=== PATIENT | male | born 2000 | race Caucasian/White ===

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

== ENCOUNTER 2022-04-23 22:24 | Emergency (ER) | payer SELFPAY ==
[2022-04-23 23:04] VITALS: BP 106/61; PULSE 92; RESP 18; TEMP 37.1; O2SAT 100; BMI 21.4
--- NOTE | 2022-04-23 23:08 | ED_ITS ---
HPI - Wound/Laceration General: Chief Complaint: Wound/Laceration Stated Complaint: left foot cut Time Seen by Provider: 04/23/22 23:08 History of Present Illness: 22-year-old male comes in today for complaints of injury to the right ball of foot. Patient reports his shoes came off while he was swimming in the river. Patient kicked up off the bottom cutting his ball of his foot at the first metatarsal phalanx joint. Patient reports that his tetanus is not up-to-date. Review of Systems General: Reports: 10 or more systems reviewed and unremarkable except in HPI and below Musc: Reports: extremity pain Skin/Breast: Reports: new lesions Physical Exam Const: COMMON NORMALS: alert HENMT: COMMON NORMALS: atraumatic HEAD & SCALP: atraumatic Neck/C-Spine: COMMON NORMALS: full ROM Resp: COMMON NORMALS: normal respiratory effort Cardio: COMMON NORMALS: regular rate RATE: regular rate Extremity: RIGHT LOWER EXTREMITY: Yes foot & digits (4 cm laceration to the right ball of foot.) Right foot and digits: Yes inspection, Yes palpation and Yes ROM Neuro: SENSORIUM/ORIENTATION: Yes alert Skin: TRAUMA: laceration (Right foot) linear; Negative for no foreign bodies present Procedures Laceration Laceration 1: Site: lower extremity (Right foot) Side (If applicable): right Size (cm): 4 Description: linear Depth: simple, single layer Local Anesthetic: lidocaine 1% Amount of anesthesia used (mL): 5 Pre-repair: wound explored and irrigated extensively Skin layer closed with: nylon Size (cm): 4-0 Number of sutures: 4 Technique: horizontal mattress Course Vital Signs: Vital signs: Vital Signs Temperature 98.7 F 04/23/22 23:04 Pulse Rate 92 04/23/22 23:04 Respiratory Rate 18 04/23/22 23:04 Blood Pressure 106/61 04/23/22 23:04 Pulse Oximetry 100 04/23/22 23:04 [facility] - Wound/Laceration Medical Decision Making 22-year-old male patient comes in today for injury to the right foot. On exam patient has a 4 cm laceration to the ball of his right foot. No tendon injury is noted. No foreign body was noted. No sign of fracture was noted. Differential diagnosis includes laceration, foreign body, need for prophylaxis tetanus. Tetanus was updated. Patient was given a dose of Augmentin for prophylaxis antibiotic. Wound was closed with 4 mattress sutures with well approximation. Reviewed postprocedure care with patient and significant other. Patient reported understanding of care plan need for follow-up and suture biju radha in 10 days. Discharge Plan Discharge Patient Disposition: Home Clinical Impression: Laceration of foot, right Qualifiers: Encounter type: initial encounter Qualified Code(s): S91.311A - Laceration without foreign body, right foot, initial encounter Condition: Stable Prescriptions: New amoxicillin-pot clavulanate 875-125 mg tablet 1 tab PO BID Qty: 14 0RF Discharge Orders: Discharge ED (Routine); Ordered 04/23/22 Ordered By: Prem Garcia Discharge Diet: Usual diet Discharge Activity: Increase activity as tolerated Patient Instructions: Care For Your Stitches (ED) Activity Restrictions/Additional Instructions: Keep wound clean and dry. Is very important to keep the wound as dry as possible for the next 2 days. Increase activities as tolerated. Drink plenty of water with antibiotic. Use acetaminophen or ibuprofen for pain. Follow-up with primary care for further instructions. Stand Alone Forms: Work/School Release Coding Level of Care Code ED Timber Management Assistant for Gisela Wright
[2022-04-23] MEDS: lidocaine 1% INJ 20 mL 10 ML INJECTION (23:31)
[2022-04-23] MEDS: amoxicillin-clav 875-125 mg Tablet 1 TAB PO (23:32)
[2022-04-23] MEDS: tetanus-dipt-pertussis 0.5 mL SDV IM (23:32)
== END 2022-04-24 01:07 | disposition home or self-care (01) ==
PROVIDERS: Emergency Provider Nurse Practitioner Family
DX: S91.311A Laceration without foreign body, right foot, initial encounter (principal); W45.8XXA Other foreign body or object entering through skin, initial encounter; Z23 Encounter for immunization
CPT/HCPCS: 12002; 90471; 90715; 99283; E0114

== ENCOUNTER 2023-06-16 21:50 | Emergency (ER) | payer OTHER, SELFPAY ==
[2023-06-16 21:55] VITALS: BP 120/58; PULSE 68; RESP 18; TEMP 36.5; O2SAT 99; BMI 23.1
--- NOTE | 2023-06-16 22:01 | XRR_ITS ---
PROCEDURE INFORMATION: Exam: XR Chest Exam date and time: 06/16/2023 10:14 PM Age: 23 years old Clinical indication: Pain; On breathing; Additional info: Lungs hurt TECHNIQUE: Imaging protocol: Radiologic exam of the chest. Views: 1 view. COMPARISON: No relevant prior studies available. FINDINGS: Lungs: Unremarkable. No consolidation. Pleural spaces: Unremarkable. No pleural effusion. No pneumothorax. Heart/Mediastinum: Unremarkable. No cardiomegaly. Bones/joints: Unremarkable. XR/XR chest 1V portable [id number] IMPRESSION: No acute findings.
--- NOTE | 2023-06-16 23:43 | W.ED.GENADLT ---
HPI - General Adult General: Chief complaint: Abdominal Pain Stated complaint: Lung hurts when He Breaths Time Seen by Provider: 06/16/23 23:31 History of Present Illness: 23-year-old male patient states he has some discomfort in his left anterior rib area which is exacerbated with deep breaths. Patient reports he went to yawn earlier today and felt something pop in his ribs and since then he has had pain with deep breaths. Patient appears nontoxic. Patient denies any fever. Patient has been having frequent sneezing episodes today. Review of Systems General: Reports: 10 or more systems reviewed and unremarkable except in HPI and below Musc: Reports: other (Left anterior rib pain) Physical Exam Const: COMMON NORMALS: alert HENMT: COMMON NORMALS: normocephalic HEAD & SCALP: normocephalic Neck/C-Spine: COMMON NORMALS: full ROM Chest: COMMONS NORMALS: normal inspection of the chest and normal palpation of entire chest wall Resp: COMMON NORMALS: normal respiratory effort and clear to auscultation bilaterally AUSCULTATION: clear to auscultation bilaterally Cardio: COMMON NORMALS: regular rate RATE: regular rate GI: COMMON NORMALS: non-tender Back/Pelvis: COMMON NORMALS: thoracic and lumbar spine normal to inspection Extremity: COMMON NORMALS: normal to inspection Neuro: SENSORIUM/ORIENTATION: Yes alert Skin: COMMON NORMALS: turgor normal GENERAL SKIN EXAM: turgor normal Course Vital Signs: Vital signs: Vital Signs Temperature 97.7 F 06/16/23 21:55 Pulse Rate 68 06/16/23 21:55 Respiratory Rate 18 06/16/23 21:55 Blood Pressure 120/58 06/16/23 21:55 Pulse Oximetry 99 06/16/23 21:55 Oxygen Delivery Me thod Room Air 06/16/23 21:55 [facility] - General Adult Medical Decision Making 23-year-old male patient comes in today with complaints of left anterior rib pain. On exam patient appears nontoxic. Lungs are clear to auscultation. Palpation of the ribs elicits no pain. Deep breath elicits pain. Differential diagnosis includes not limited to pneumothorax, rib fracture, costochondritis, pleurisy. X-ray noted no abnormalities. Believe the patient probably has some mild costochondritis. Recommended acetaminophen and ibuprofen. Patient was given 1 dose of dexamethasone 10 mg in the ER along with Zyrtec due to his persistent sneezing. Patient reported understanding of care plan and need for follow-up or return to the ER. Lab Data Radiology Impressions Chest X-Ray 06/16/23 22:01 IMPRESSION: No acute findings. Discharge Plan Discharge Patient Disposition: Home Clinical Impression: Acute costochondritis Condition: Stable Prescriptions: No Action amoxicillin-pot clavulanate 875-125 mg tablet 1 tab PO BID Qty: 14 0RF Discharge Orders: Discharge ED (Routine); Ordered 06/16/23 Ordered By: rPem Garcia Discharge Diet: Usual diet Discharge Activity: Increase activity as tolerated Patient Instructions: Costochondritis (ED) Activity Restrictions/Additional Instructions: Drink plenty of water and fluids. Use acetaminophen and/or ibuprofen for pain and discomfort. Follow-up with primary care as needed. Use antihistamine such as Claritin or Zyrtec to help with your sneezing. Return to ER for worsening symptoms such as high fever greater than 100.4, increasing shortness of breath, uncontrolled chest pain. Coding Level of Care Code ED Furniture Removalist'S Assistant for Gisela Wright
[2023-06-16] MEDS: dexamethasone 4 mg Tablet 10 MG PO (23:51)
[2023-06-16] MEDS: cetirizine 10 mg Tablet PO (23:51)
== END 2023-06-16 23:53 | disposition home or self-care (01) ==
PROVIDERS: Emergency Provider Nurse Practitioner Family
DX: M94.0 Chondrocostal junction syndrome [Tietze] (principal)
CPT/HCPCS: 71045; 99283; J8540